=== PATIENT | female | born 1995 | race Two or more races ===

== ENCOUNTER 2019-01-25 13:04 | Emergency (ER) | payer BC ==
[~2019-01-25] VITALS: Ht 154.9 cm; Wt 66.7 kg
--- NOTE | 2019-01-25 13:05 | NUR ---
SUICIDAL IDEATION, NO PLAN AT THIS TIME. PATIENT A/OX4, BREATHING EVEN AND UNLABORED, PATIENT CHANGED INTO GOWN, SITTER AT BEDSIDE FOR SAFETY. KEPT COMFORTABLE, WAITING FOR MD CORREIA.
[2019-01-25 13:37] LABS: BASOPHILS % (AUTO) 0.3 % (0.0-2.0); EOSINOPHILS % (AUTO) 0.3 % (0.0-6.0); HEMATOCRIT 40 % (33-45); HEMOGLOBIN 13.9 g/dL (11.5-14.8); LYMPHOCYTES # (AUTO) 1.5 /CMM (0.8-4.8); LYMPHOCYTES % (AUTO) 18.3 % (20.0-44.0); MEAN CORPUSCULAR HGB CONC 35 g/dl (31.0-36.0); MEAN CORPUSCULAR VOLUME 93 fL (82-100); MONOCYTES # (AUTO) 0.3 /CMM (0.1-1.30); MONOCYTES % (AUTO) 3.9 % (2.0-12.0); NEUTROPHILS # (AUTO) 6.2 /CMM (1.8-8.9); NEUTROPHILS % (AUTO) 77.2 % (43.0-81.0); PLATELET COUNT (AUTO) 290 /CMM (150-450); RED BLOOD CELL COUNT(AUTO) 4.37 MIL/uL (4.0-5.2); WHITE BLOOD COUNT (AUTO) 8.1 K/uL (4.3-11.0)
[2019-01-25 13:50] LABS: BILIRUBIN,URINE Negative (NEGATIVE); BLOOD, URINE Negative Ery/uL (NEGATIVE); COLOR,URINE Yellow (YELLOW); KETONES,URINE Negative (NEGATIVE); LEUKOCYTE ESTERASE ,URINE Small (NEGATIVE); NITRITE, URINE Negative (NEGATIVE); PROTEIN,URINE Negative (NEGATIVE); UGLUCOSE Negative (NEGATIVE); UROBILINOGEN,URINE 0.2 EU/dL (0.2)
[2019-01-25 13:51] LABS: APPEARANCE,URINE Slightly Hazy (CLEAR)
[2019-01-25 13:52] LABS: CARBON DIOXIDE 29 mmol/L (21-32); CHLORIDE 105 mmol/L (98-107); CREATININE 0.5 mg/dL (0.6-1.3); GLUCOSE 101 mg/dL (74-106); POTASSIUM 4.1 mmol/L (3.5-5.1); SODIUM SERUM 140 mmol/L (136-145); UREA NITROGEN, BLOOD 10 mg/dL (7-18)
[2019-01-25 13:56] LABS: ALANINE AMINOTRANSFERASE 17 U/L (12-78); ALBUMIN 4.1 g/dL (3.4-5.0); ALKALINE PHOSPHATASE 88 U/L (46-116); ASPARTATE AMINOTRANSFERASE 13 U/L (15-37); BILIRUBIN,DIRECT 0.2 mg/dL (0.0-0.2); BILIRUBIN,TOTAL 0.9 mg/dL (0.2-1.0); TOTAL PROTEIN, SERUM 8.1 g/dL (6.4-8.2)
[2019-01-25 13:57] LABS: ACETAMINOPHEN 0 ug/ml (10-30); ALCOHOL, BLOOD < 3 mg/dL (0-0); SALICYLATE < 2.8 mg/dL (2.8-20.0)
[2019-01-25 13:59] LABS: BACTERIA,URINE Rare /HPF (None Seen); RBC,URINE 0-3 /HPF (0-2); SQUAMOUS EPITHELIAL CELL,UR Moderate /HPF (None Seen)
--- NOTE | 2019-01-25 14:05 | NUR ---
PATIENT SEEN BY SALES REPRESENTATIVE [employer].
--- NOTE | 2019-01-25 14:11 | NUR ---
Social service consult requested by TANYA Wall for suicidal Ideations. Pt. is a 23 year old female who was sent to [facility] ED by her psychiatrist Dr. Thibodeaux for suicidal ideations. SATHISH met with pt. bedside. Pt. had her face covered under the blanket but uncovered her face when SW called her name. Pt. is alert and oriented x 4. Pt. has a sad affect and speaks softly. Pt. stated she has been having increasing thoughts of suicide for about a week stated, she cut her forearm this morning. Pt. has a psychiatric diagnosis of Depression and Generalized Anxiety Disorder and was diagnosed in June 2016. Pt. states she takes two medications but can only remember one of the medications which is Hydroxyzine for anxiety. Pt. is the daughter of one of [facility] employees. Pt. resides with her mom Amie Juárez and a roommate. SW inquired with the pt. regarding how are things at home, pt. stated " things are okay" but would not elaborate any further. Pt. informed SW she doesn't want her mom to know she is at [facility] ED. Pt. denies homicidal ideations. Pt. is willing to go voluntary to a psychiatric facility. SATHISH spoke with Lizabeth in central intake and faxed her clinical referral packet per her request to . Pt. has no prior history of psychiatric admissions. Pt. smokes marijuana daily at night and denies any other drug use. Pt. drinks alcohol socially and usually will drink hard liquor such as tequila or vodka. Pt. denies any cigarette use. SW to follow up with central intake for an updated for psychiatric admission.
--- NOTE | 2019-01-25 14:31 | NUR ---
SATHISH called Lizabeth at central intake informing her that the referral packet was sent to her. Lizabeth confirmed receiving it and informed SATHISH they will review and follow up with SATHISH.
--- NOTE | 2019-01-25 15:26 | NUR ---
SATHISH contacted Lizabeth at central intake to get an update. Per Lizabeth at Central intake, pt. has been accepted to [facility] located at [address] [place] [address], [place] [address]. Report needs to be called in to dementia program director Katlyn at . Per Lizabeth it will be a direct admit from ED to ED. Pt. will be going to psychiatric unit on the second floor.
--- NOTE | 2019-01-25 15:28 | NUR ---
PATIENT AA/OX3, RESTING NO DISTRESS NOTED
--- NOTE | 2019-01-25 15:28 | NUR ---
SW updated pt's LOUISE Griffith and TANYA Wall regarding pt. being accepted at [facility] located at [address] [place] [address], [place] [address]. Report needs to be called in to hospital cleaner Katlyn at . Per Lizabeth it will be a direct admit from ED to ED. Pt. will be going to psychiatric unit on the second floor.
--- NOTE | 2019-01-25 15:53 | NUR ---
CALLED FOR [facility], [phone] ETA, TRIP # [id number]
--- NOTE | 2019-01-25 16:01 | NUR ---
SATHISH met with pt. bedside and informed her that she has been accepted on voluntary at [facility] located at [address] [place] [address], in [place]. [place]. Pt. was worried that she is on a hold. SATHISH reassured pt. that she is not on a 5150 hold and is going voluntary to the psychiatric unit. Pt. agreed to go for medication management and stabilization. No other social service needs are requested at this time. TANYA Wall has bee updated with pt's discharge plan.
--- NOTE | 2019-01-25 16:03 | NUR ---
REPORT GIVEN TO LYDIA GIL AT [facility]
--- NOTE | 2019-01-25 16:52 | NUR ---
received a call from [facility] and stated to cancel ambulance, they will arrange own transportation when they're ready for patient, they're having staffing issues at this time.
--- NOTE | 2019-01-25 19:45 | NUR ---
ENDORSED TO JASON SILVER RODRIGO.
--- NOTE | 2019-01-25 20:28 | NUR ---
SPOKE WITH CATALINA FROM [facility], READY TO RECEIVE [facility]. CALLED [facility] FOR [facility]SPORTATION, ETA [phone]. TRIP NUMBER [id number]. BED ASSIGNMENT [id number]
[2019-01-25 21:54] VITALS: BP 111/64
--- NOTE | 2019-01-25 21:54 | NUR ---
GAVE REPORT TO [facility] FOR [facility]SP[facility] RODRIGO
== END 2019-01-25 21:54 ==
LOC: ER 13:06
DX: R45.851 Suicidal ideations (principal)
CPT/HCPCS: 36415; 80048; 80076; 80305; 80307; 80329; 81001; 84703; 85025; 87086; 99285; G0480; 81000-TC